=== PATIENT | female | born 1945 | race Caucasian/White ===

== ENCOUNTER 2020-02-01 10:52 | Inpatient (IN) ==
[2020-02-01 14:18] LABS: ABS Eosinophils 0.2 10^3/ul (0-0.6); ABS Lymphocytes 0.9 10^3/ul (1.0-4.8); ABS Monocytes 0.6 10^3/ul (0-0.8); ABS Neutrophils 9.9 10^3/ul (1.5-7.7); Eosinophil % 1.3 %; Hematocrit 38 % (35-47); Hemoglobin 12.9 g/dL (12.0-16.0); Lymphocyte % 7.9 %; Mean Corpuscular HGB Conc 34 g/dL (31-36); Mean Corpuscular Hemoglobin 32 pg (27-31); Mean Corpuscular Volume 94 fL (80-97); Mean Platelet Volume 8.5 fL (7.4-10.4); Platelet Count 245 10^3/uL (150-450); Red Blood Count 4.02 10^6 /uL (3.70-4.87); Red Cell Distribution Width 14 % (10-15); White Blood Count 11.6 10^3/uL (3.5-10.8)
[2020-02-01 14:29] LABS: Activated Partial Thrombo Time 25.9 seconds (26.0-38.0); Albumin 3.8 g/dL (3.2-5.2); BUN/Creatinine Ratio 25.9 (8-20); Calcium 9.3 mg/dL (8.6-10.3); EGFR African American 84.1 (>60); EGFR Non-African American 69.5 (>60); Globulin 3.9 g/dL (2-4); INR 1.16 (0.82-1.09); Total Bilirubin 0.4 mg/dL (0.2-1.0); Total Protein 7.7 g/dL (6.4-8.9)
[2020-02-01 14:30] LABS: Troponin I 0.01 ng/mL (<0.03)
[2020-02-01] MEDS: Morphine 2 MG/ML SYRINGE IV PRN (15:57)
[2020-02-01 16:50] LABS: TSH Ultra Thyroid Stim Horm 0.5 mcIU/mL (0.34-5.60)
[2020-02-01] MEDS ORDERED: Heparin 5000 UNITS/ML 1 mL VIAL SUBCUT SCH (22:00)
[2020-02-02] MEDS: Morphine 2 MG/ML SYRINGE IV PRN ×4 (02:05→17:48)
[2020-02-02 05:57] LABS: ABS Eosinophils 0.2 10^3/ul (0-0.6); ABS Lymphocytes 1.7 10^3/ul (1.0-4.8); ABS Monocytes 0.9 10^3/ul (0-0.8); ABS Neutrophils 7.8 10^3/ul (1.5-7.7); Eosinophil % 1.6 %; Hematocrit 36 % (35-47); Hemoglobin 12.2 g/dL (12.0-16.0); Lymphocyte % 15.9 %; Mean Corpuscular HGB Conc 34 g/dL (31-36); Mean Corpuscular Hemoglobin 32 pg (27-31); Mean Corpuscular Volume 95 fL (80-97); Mean Platelet Volume 8.2 fL (7.4-10.4); Platelet Count 247 10^3/uL (150-450); Red Blood Count 3.83 10^6 /uL (3.70-4.87); Red Cell Distribution Width 14 % (10-15); White Blood Count 10.6 10^3/uL (3.5-10.8)
[2020-02-02 06:03] LABS: INR 1.3 (0.82-1.09)
[2020-02-02] MEDS ORDERED: Lisinopril/HCTZ 20/12.5 TB(NF) PO SCH (09:00)
[2020-02-02] MEDS ORDERED: Phytonadione Oral Solution 5 MG/25 ML UDC PO ONE ×2 (12:00→18:43)
[2020-02-02] MEDS: Heparin 5000 UNITS/ML 1 mL VIAL SUBCUT SCH ×2 (12:20→22:05)
[2020-02-02] MEDS ORDERED: Polyethylene Glycol 3350 17 GM PACKET PO PRN (12:29)
[2020-02-02] MEDS ORDERED: Senna TAB 8.6 mg TAB PO PRN (12:29)
[2020-02-02 18:05] LABS: INR 1.28 (0.82-1.09)
[2020-02-02] MEDS: Magnesium Hydroxide LIQ 30 ML UDC PO PRN (22:16)
[2020-02-03] MEDS: Morphine 2 MG/ML SYRINGE IV PRN ×2 (00:15→23:49)
[2020-02-03] MEDS ORDERED: Lactated Ringers 1000 ml BAG 1,000 ML IV SCH (06:00)
[2020-02-03] MEDS ORDERED: Buffered Lidocaine 1% SYRIN 1 ml INTRADERM ONE (06:00)
[2020-02-03 06:41] LABS: ABS Eosinophils 0.2 10^3/ul (0-0.6); ABS Lymphocytes 1.5 10^3/ul (1.0-4.8); ABS Neutrophils 7.5 10^3/ul (1.5-7.7); Eosinophil % 1.8 %; Hematocrit 35 % (35-47); Hemoglobin 12.1 g/dL (12.0-16.0); Lymphocyte % 14.2 %; Mean Corpuscular HGB Conc 35 g/dL (31-36); Mean Corpuscular Hemoglobin 33 pg (27-31); Mean Corpuscular Volume 94 fL (80-97); Mean Platelet Volume 8.1 fL (7.4-10.4); Platelet Count 227 10^3/uL (150-450); Red Blood Count 3.72 10^6 /uL (3.70-4.87); Red Cell Distribution Width 14 % (10-15); White Blood Count 10.2 10^3/uL (3.5-10.8)
[2020-02-03 06:47] LABS: INR 1.23 (0.82-1.09)
[2020-02-03 07:14] LABS: BUN/Creatinine Ratio 23.9 (8-20); EGFR African American 97.9 (>60); EGFR Non-African American 80.9 (>60); Potassium 4.1 mmol/L (3.5-5.0)
[2020-02-03] MEDS ORDERED: Phytonadione SUBCUT/IM Adult 10 MG/ML AMP (IM or SQ not preferred route) IM ONE (08:02)
[2020-02-03] MEDS ORDERED: Phytonadione IV (Adult) 5 MG in NS 0.9% 50 ML 50 ML IV ONE (09:00)
[2020-02-03 13:32] LABS: INR 1.2 (0.82-1.09)
[2020-02-03] MEDS ORDERED: ceFAZolin 2 GM PREMIX 2 GM/50 ML BAG ONE (13:33)
[2020-02-03] MEDS ORDERED: fentaNYL 100 mcg/2 ml 50 MCG/ML VIAL IV PRN (13:34)
[2020-02-03] MEDS ORDERED: Naloxone 0.4 mg VIAL 0.4 mg/ml 1 ml VIAL IV PRN (13:34)
[2020-02-03] MEDS ORDERED: Ondansetron 4 mg VIAL 2 MG/ML 2 ml VIAL IV PRN (13:34)
[2020-02-03] MEDS ORDERED: HYDROmorphone 1 MG/1 ML SYRINGE IV PRN (13:34)
[2020-02-03] MEDS ORDERED: Bupivacaine 0.25% SDV 30 ML ONE (13:37)
[2020-02-03] MEDS ORDERED: Rocuronium 50 mg VIAL 10 mg/ml 5 ml VIAL (50 mg) ONE (13:42)
[2020-02-03] MEDS ORDERED: fentaNYL 100 mcg/2 ml 50 MCG/ML VIAL ONE (13:42)
[2020-02-03] MEDS ORDERED: Midazolam 5 mg/5 ml VIAL 1 mg/ml 5 ml VIAL (5 mg) ONE (13:42)
[2020-02-03] MEDS ORDERED: Bupivacaine 0.5% SDV PF 30ML VIAL ONE (13:45)
[2020-02-03] MEDS ORDERED: EPHEDrine (Pressors) 50 MG/ML VIAL ONE (15:28)
[2020-02-03] MEDS: Magnesium Hydroxide LIQ 30 ML UDC PO PRN (20:47)
[2020-02-03] MEDS: ceFAZolin 1 GM X 3 DOSES POST-OP Q8H (AddVan) IVPB SCH (23:50)
[2020-02-04 06:49] LABS: Hematocrit 32 % (35-47); Hemoglobin 11.1 g/dL (12.0-16.0); Mean Platelet Volume 8.4 fL (7.4-10.4); Platelet Count 242 10^3/uL (150-450)
[2020-02-04 07:04] LABS: BUN/Creatinine Ratio 23.4 (8-20); Calcium 8.6 mg/dL (8.6-10.3); EGFR African American 89.2 (>60); EGFR Non-African American 73.7 (>60); Potassium 4.2 mmol/L (3.5-5.0)
[2020-02-04] MEDS: ceFAZolin 1 GM X 3 DOSES POST-OP Q8H (AddVan) IVPB SCH ×2 (08:08→14:42)
[2020-02-04] MEDS: Magnesium Hydroxide LIQ 30 ML UDC PO PRN (08:08)
[2020-02-04] MEDS: Morphine 2 MG/ML SYRINGE IV PRN (09:40)
[2020-02-04] MEDS: Enoxaparin 40 MG/0.4 ML SYR SUBCUT SCH (14:42)
[2020-02-05 06:17] LABS: Hematocrit 31 % (35-47); Hemoglobin 10.7 g/dL (12.0-16.0); Mean Platelet Volume 8.2 fL (7.4-10.4); Platelet Count 246 10^3/uL (150-450)
[2020-02-05 06:26] LABS: BUN/Creatinine Ratio 25.3 (8-20); Calcium 8.6 mg/dL (8.6-10.3); EGFR African American 81.8 (>60); EGFR Non-African American 67.6 (>60); Potassium 4.1 mmol/L (3.5-5.0)
[2020-02-05] MEDS: Enoxaparin 40 MG/0.4 ML SYR SUBCUT SCH (11:19)
[2020-02-05 12:02] VITALS: BP 134/52
== END 2020-02-05 18:30 | disposition home health service (06) | DRG 480 ==
LOC: ED 10:52 → MEDTELE 14:01 → MED 02-02 09:38
PROVIDERS: ADMIT Internal Medicine; ATTEND Internal Medicine